=== PATIENT | male | born 1985 | race Caucasian/White ===

== ENCOUNTER 2024-02-12 14:20 | Emergency (ER) | payer SELFPAY ==
[~2024-02-12] VITALS: Ht 175.3 cm; Wt 75.0 kg
[2024-02-12 14:38] VITALS: BP 122/79; PULSE 78; TEMP 97.7; O2SAT 99
[2024-02-12] MEDS: TETANUS, DIPHTHERIA, PERTUSSIS VAC/PF 0.5ML (>10YR OLD) IM ONE (17:30)
[2024-02-12] MEDS: HYDROCODONE/ACETAMINOPHEN 5/325MG TABLET PO ONE (17:30)
[2024-02-12 18:30] VITALS: RESP 16
[2024-02-12] MEDS ORDERED: IBUP-2030 MT (18:35)
== END 2024-02-12 19:06 | disposition home or self-care (01) ==
LOC: ER 14:20
DX: S89.91XA Unspecified injury of right lower leg, initial encounter (principal); W18.30XA Fall on same level, unspecified, initial encounter; Y93.89 Activity, other specified; Y92.89 Other specified places as the place of occurrence of the external cause; Y99.8 Other external cause status
CPT/HCPCS: 29505; 73562; 73700; 90471; 90715; 99285